=== PATIENT | female | born 1960 | race Caucasian/White ===

== ENCOUNTER 2022-03-28 11:32 | Emergency (ER) | payer SELFPAY ==
--- OUTSIDE RECORDS SUMMARY | 2022-03-28 11:36 | XMS REPORT | Continuity of Care Document ---
:1960 Author Organization [facility] Address [address] [place] [address] Care Team Providers Name Role Phone Arely Mcgarry DO Attending Clinician Doctor Unassigned, [place] Attending Clinician Unavailable Christina Becerra MD Attending Clinician Payers Payer Name Policy Type Policy Number Effective Date Expiration Date Jostin WHITEHEAD O [id number] 2017 00:00:00 Problems Condition Condition Condition Status Onset Resolution Last Treating Co mments Source Name Details Category Date Date Treatment Clinician Date Acute Acute Disease Active Univers cystitis cystitis 09-11 ity of without without 00:00: [place] hematuria hematuria 00 [facility] Elevated Elevated Disease Active Unive rs blood blood 09-11 ity of pressure pressure 00:00: [place] reading reading 00 Medical without without Branch diagnosis diagnosis of of hypertensi hypertensi on on Allergies, Adverse Reactions, Alerts Allergy Allergy Status Severity Reaction(s) Onset Inactive Treating Comm ents Source Name Type Date Date Clinician PENICILL Drug Active Rash Univers INS Class 09-11 ity of 00:00: [place] 00 [facility] Branch Penicill Propensi Active Rash Univer s ins ty to 09-11 ity of adverse 00:00: [place] reaction 00 Medical s Branch Social History Social Habit Start Date Stop Date Quantity Comments Source History of Cigarette Smoker Universi ty of tobacco use [facility] Exposure to Unable to assess Univers ity of SARS-CoV-2 [facility] (event) Branch Cigarettes smoked 2020-11-09 2020-11-09 Univers ity of current (pack per 00:00:00 00:00:00 ) - Reported Branch Cigarette 2020-11-09 2020-11-09 University of pack-years 00:00:00 00:00:00 [facility] Tobacco use and 2020-11-09 2020-11-09 Never used Universit y of exposure 00:00:00 00:00:00 [facility] Alcohol intake 2020-11-09 2020-11-09 Current drinker of Un iversity of 00:00:00 00:00:00 alcohol (finding) [facility] Alcohol Comment 2014-09-11 2014-09-11 occasionally Univers ity of 00:00:00 00:00:00 [facility] Sex Ass[birth year] At [birth year] Universit y of 00:00:00 00:00:00 [facility] Smoking Status Start Date Stop Date Source Current every day smoker 2020-11-09 00:00:00 Uni versity of [facility] Medications Ordered Filled Start Stop Current Ordering Indication Dosage Frequency Signature Comments Components Source Medication Medication Date Date Medication? Clinician (SIG) Name Name NaCl 0.9% No 1000mL at 999 Uni vers (NS) bolus 11-09 mL/hr, ity of infusion 15:45: 16:46 1,000 mL, Aaron as 1,000 mL 00 :00 IV Medical Piggyback, [place] ONCE, 1 dose, 11/09/20 at 1045, STAT iohexol 2019-04 2020- No 120mL 120 mL, Unive rs (OMNIPAQUE 0-04 10-04 Intravenou it y of 350 16:00: 15:51 s, ONCE, 1 [place] BULK-100 00 :00 dose, [facility] mL) 01/07/20 at Branch injection 1100, 120 mL Routine dicyclomine 2019-04 Yes [id number] 10mg Take 1 Univers (BENTYL) 10 0-04 capsule by it y of mg capsule 00:00: mouth 4 [place] (four) Medical times [place] daily. ondansetron 2019- Yes [id number] 4mg Take 1 Univers 4 mg 0-04 tablet by ity of disintegrat 00:00: mouth [place] ing tablet 00 every 4 Medica l (four) Branch hours as needed for Nausea and Vomiting (N/V). Nitrofurant 2019- Yes [id number] 100mg Take 1 Univers oin&Nit. 0-04 capsule by ity o f [place] 00:[place]: mouth 2 [place] (MACROBID) 00 (two) Medical 100 mg times Branch capsule daily. dicyclomine 2019-04 Yes [id number] 10mg Take 1 Univers (BENTYL) 10 0-04 capsule by it y of mg capsule 00:00: mouth 4 [place] (four) Medical times Branch daily. ondansetron 2019-04 Yes [id number] 4mg Take 1 Univers 4 mg 0-04 tablet by ity of disintegrat 00:00: mouth [place] ing tablet 00 every 4 Medica l (four) Branch hours as needed for Nausea and Vomiting (N/V). Nitrofurant 2019-04 Yes [id number] 100mg Take 1 Univers oin&Nit. 0-04 capsule by ity o f [place] 00:[place]: mouth 2 [place] (MACROBID) 00 (two) Medical 100 mg times Branch capsule daily. dicyclomine 2019-04 Yes [id number] 10mg Take 1 Univers (BENTYL) 10 0-04 capsule by it y of mg capsule 00:00: mouth 4 [place] (four) Medical times Branch daily. ondansetron 2019-04 Yes [id number] 4mg Take 1 Univers 4 mg 0-04 tablet by ity of disintegrat 00:00: mouth [place] ing tablet 00 every 4 Medica l (four) Branch hours as needed for Nausea and Vomiting (N/V). Nitrofurant 2019-04 Yes [id number] 100mg Take 1 Univers oin&Nit. 0-04 capsule by ity o f [place] 00:[place]: mouth 2 [place] (MACROBID[place] 00 (two) Medical 100 mg times Branch capsule daily. benzonatate 2017-0 Yes 100mg Take 1 Uni vers 100 mg 3-01 capsule by ity of capsule 00:00: mouth 3 [place] 00 (three) Medical times Branch daily as needed for Cough. DO NOT CHEW! benzonatate 0 Yes 100mg Take 1 Uni vers 100 mg 3-01 capsule by ity of capsule 00:00: mouth 3 [place] 00 (three) Medical times Branch daily as needed for Cough. DO NOT CHEW! benzonatate 2017-0 Yes 100mg Take 1 Uni vers 100 mg 3-01 capsule by ity of capsule 00:00: mouth 3 [place] 00 (three) Medical times Branch daily as needed for Cough. DO NOT CHEW! Vital Signs Vital Name Observation Time Observation Value Comments Source Systolic blood 2020-11-09 16:00:00 162 mm[Hg] Univer sity of pressure [facility] Diastolic blood 2020-11-09 16:00:00 97 mm[Hg] Unive rsity of pressure [facility] Heart rate 2020-11-09 16:00:00 77 /min Universi ty of [facility] Respiratory rate 2020-11-09 16:00:00 19 /min [facility] Oxygen saturation in 2020-11-09 16:00:00 95 /min University of Arterial blood by [facility] Pulse oximetry Branch BMI 2020-11-09 14:37:00 27.37 kg/m2 Universi ty [place] [facility] Body temperature 2020-11-09 14:37:00 36.89 Fatimah [facility] [place] [facility] Body weight 2020-11-09 14:37:00 81.647 kg Universi ty [place] [facility] Systolic blood 2020-01-07 17:00:00 123 mm[Hg] Univer sity of pressure [facility] Diastolic blood 2020-01-07 17:00:00 89 mm[Hg] Unive rsity of [facility] Heart rate 2020-01-07 17:00:00 77 /min Universi ty [place] [facility] Oxygen saturation in 2020-01-07 17:00:00 95 /min University of Arterial blood by [facility] Pulse oximetry Branch Respiratory rate 2020-01-07 16:50:00 18 /min Univ ersity [place] [facility] Body temperature 2020-01-07 14:45:00 35.78 Fatimah [facility] [place] [facility] 2020-01-07 14:45:00 81.647 kg Universi ty [place] [facility] BMI 2020-01-07 14:45:00 27.37 kg/m2 [facility] Procedures Procedure Date / Time Performing Clinician Source Performed XR CHEST 1 VW 2020-11-09 15:22:45 Arely Mcgarry [facility] TROPONIN I 2020-11-09 14:45:00 Arely Mcgarry [facility] HEPATIC FUNCTION PANEL 2020-11-09 14:45:00 Arely Mcgarry [facility] ([id number]) (ALB,T.PRO,BILI Medical Branch T,BU/BC,ALT,AST,ALK PHOS) BASIC METABOLIC PANEL 2020-11-09 14:45:00 Arely Mcgarry [facility] (NA, K, CL, CO2, Medical Branch GLUCOSE, BUN, CREATININE, CA) CBC WITH DIFF 2020-11-09 14:45:00 Arely Mcgarry [facility] Medical Branch COVID-19 (ID NOW RAPID 2020-11-09 14:45:00 [facility] Medical Branch NOTICE OF PRIVACY 2020-11-09 14:27:55 Doctor Unassigned, No [facility] PRACTICES Name Medical Branch CONSENT/REFUSAL FOR 2020-11-09 14:27:40 [facility] Name Medical [place] ABDOMEN PELVIS W WO 2020-01-07 15:56:17 Christina Becerra [facility] CONTRAST [facility] Branch LIPASE 2020-01-07 15:13:00 Leandro Christina [facility] HEPATIC FUNCTION PANEL 2020-01-07 15:13:00 Christina Becerra [facility] ([id number]) (ALB,T.PRO,BILI Medical Branch T,BU/BC,ALT,AST,ALK PHOS) BASIC METABOLIC PANEL 2020-01-07 15:13:00 Christina Becerra [facility] (NA, K, CL, CO2, Medical Branch GLUCOSE, BUN, CREATININE, CA) CBC WITH DIFF 2020-01-07 15:13:00 Christina Becerra [facility] PROTHROMBIN TIME / INR 2020-01-07 15:13:00 Christina Becerra [facility] ACTIVATED PARTIAL 2020-01-07 15:13:00 Christina Becerra [facility] THRMPLAS MIGUEL [facility] Branch URINALYSIS 2020-01-07 15:13:00 Leandro Christina [facility] NOTICE OF PRIVACY 2020-01-07 14:34:37 Doctor Unassigned, No [facility] PRACTICES Name Medical Branch Encounters Start End Encounter Admission Attending Care Care Encounter Source Date/Time Date/Time Type Type Clinicians Facility Department ID 2020-11-09 2020-11-09 Emergency VAL Mcgarry [id number] Univers 09:31:00 11:46:00 Arely Ellis [id number] ity of [place] [id number] [facility] [id number] [facility] 084 Branch 2020-11-09 2020-11-09 Emergency X [facility] ERT [id number] Univers 09:28:00 09:28:00 ity of [facility] 2020-11-09 2020-11-09 Orders Doctor GUPTA [id number] Univers 00:00:00 00:00:00 Only Unassigned, SARA [id number] ity of [place] [facility] [id number] Aaron [id number] [facility] 009 Branch 2020-01-07 2020-01-07 Emergency Becerra, [facility] [id number] Univers 09:46:00 12:32:00 Christina Ellis [id number] i ty of [place] [id number] [facility] [id number] [facility] 084 Branch 2020-01-07 2020-01-07 Emergency X [facility] ERT [id number] Univers 09:36:00 09:36:00 ity [place] [facility] Results Test Description Test Time Test Comments Results Result Sour e Comments XR CHEST 1 VW 1. No acute Universit y of 7 cardiopulmonary [place] [facility] 16:03:51 disease. Branch Indication: cough, sob ? Comparison: None RL: [id number] ORDERING PHYSICIAN: WENCESLAO ALVA TECHNIQUE: Single view of the chest. FINDINGS: The lungs are clear. Cardiomediastinal silhouette is withinnormal limits. ?No pneumothorax. Status post intramedullary ian andproximal interlocking screws in the left humerus. [facility], Radiant Results Inft User - 11/09/2020 11:05 AM CDT Indication: cough, sob Comparison: NoneRL: [id number] PHYSICIAN: ARELY MCGARRY TECHNIQUE: Single view of the chest.FINDINGS: The lungs are clear. Cardiomediastinal silhouette is withinnormal limits. No pneumothorax. Status post intramedullary ian andproximal interlocking screws in the left humerus.IMPRESSION1. No acute cardiopulmonary disease.Electronicall y signed by Adin Avery at 11/09/2020 11:03 AM TROPONIN I 2020-11-09 15:29:49 Test Item Value Reference Range Interpretation Comme nts TROPONIN I (test code = 0.001 ng/mL See_Comment [Au tomated message] The 4402663928) system which ge nerated this result tra nsmitted reference range : <=0.034. The reference r robby was not used to int erpret this result as normal/abnormal . RAFAEL (test code = RAFAEL) Reference (Normal) Range (defined by the 99th percentile reference limit): <= 0.034 ng/mL Note: Cardiac troponin begins to rise 3-4 hours after the onset of ischemia. Repeat in 4-6 hours if the sample was drawn within 3-4 hours of the onset of the symptom and found normal. Diagnosis of myocardial injury is made with acute changes in cTn concentrations with at least one serial sample above the 99th percentile upper reference limit (URL), taken together with the patient's clinical presentation. Biotin has been reported to cause a negative bias, interpret results relative to patient's use of biotin. Lab Interpretation Normal (test code = 68895-5) [facility]2020-11-09 15:19:50 Test Item Value Reference Range Interpretation Comments SARS-CoV-2 Rapid ID NOW Not Detected Not Detected (test code = 75196-5) RAFAEL (test code = RAFAEL) ID NOW COVID-19 Assay is an isothermal nucleic acid amplification test intended for the qualitative detection of nucleic acid from SARS-CoV-2 viral RNA in nasopharyngeal (PATHOLOGICAL TECHNICIAN) specimens. It is used under Emergency Use Authorization (EUA) by FDA. The limit of detection (LOD) of the assay is 125 Genome Equivalents/mL. A positive result is indicative of the presence of SARS-CoV-2 RNA. ?Clinical correlation with patient history and other diagnostic information is necessary to determine patient infection status. A negative (Not Detected) result does not preclude SARS-CoV-2 infection. In patients with clinical symptoms and other tests that are consistent with SARS-CoV-2 infection, negative results should be treated as presumptive negative and a new specimen should be tested with alternative PCR molecular test. Invalid: Please collect a new specimen for repeat patient testing if clinically indicated. Lab Interpretation Normal (test code = 49936-0) [facility] METABOLIC PANEL (NA, K, CL, CO2, GLUCOSE, BUN, CREATININE, CA)2020-11-09 15:18:30 Test Item Value Reference Range Interpretation Comments NA (test code = 139 mmol/L 135-145 8170842509) K (test code = 3.7 mmol/L 3.5-5.0 7185610470) CL (test code = 100 mmol/L 98-108 9449774514) CO2 TOTAL (test code 27 mmol/L 23-31 = 9835294458) AGAP (test code = 2-16 4261605767) BUN (test code = 20 mg/dL 7-23 2719850317) GLUCOSE (test code = 106 mg/dL 70-110 2705876122) CREATININE (test code 0.64 mg/dL 0.50-1.04 = 8321066317) CALCIUM (test code = 9.8 mg/dL 8.6-10.6 8198599690) eGFR (test code = mL/min/1.73m2 6378004678) RAFAEL (test code = RAFAEL) Association of Glomerular Filtration Rate (GFR) and Staging of Kidney Disease* + + +- +| GFR (mL/min/1.73 m2) ?| With Kidney Damage ?| ?Without Kidney Damage+ ------+ ----+ ------+| ?>90 ?| ?Stage one ?| ? Normal ?+ -+ + -+| ?60-89 ?| ?Stage two ?| ? Decreased GFR ? + + +- +| ?30-59 ?| ?Stage three ?| ? Stage three ? + + +- +| ?15-29 ?| ?Stage four ? | ? Stage four ?+ -+ + -+| ?<15 (or dialysis) ? ?| ?Stage five ? | ? Stage five ?+ -+ + -+ *Each stage assumes the associated GFR level has been in effect for at least three months. ?Stages 1 to 5, with or without kidney disease, indicate chronic kidney disease. Notes: Determination of stages one and two (with eGFR >59mL/min/1.73 m2) requires estimation of kidney damage for at least three months as defined by structural or functional abnormalities of the kidney, manifested by either:Pathological abnormalities or Markers of kidney damage (including abnormalities in the composition of the blood or urine or abnormalities in imaging tests). [facility] (ALB,T.PRO,BILI T,BU/BC,ALT,AST,ALK PHOS)2020-11-09 15:18:10 Test Item Value Reference Range Interpretation Comments TOTAL BILI (test code = 3240573607) 0.7 mg/dL 0.1-1.1 BILI UNCON (test code = 7886126776) 0.4 mg/dL 0.1-1.1 BILI CONJ (test code = 6004509496) 0.0 mg/dL 0.0-0.3 T PROTEIN (test code = 2272039216) 8.4 g/dL 6.3-8.2 H ALBUMIN (test code = 7879411935) 4.8 g/dL 3.5-5.0 ALK PHOS (test code = 1536365300) 85 U/L 34-122 ALTv (test code = 1742-6) 31 U/L 5-35 AST(SGOT) (test code = 0559580262) 32 U/L 13-40 Lab Interpretation (test code = Abnormal 18862-5) [facility] [id number] 15:05:09 Test Item Value Reference Range Interpretation Comments WBC (test code = See_Comment [Automated 1998-2) message] The sy stem which generated this result transmitted reference range : 4.30 - 11.10 10*3/?L. The reference range was not used to interpret this result as normal/abnormal . RBC (test code = See_Comment [Automated 048-3) message] The sy stem which generated this result transmitted reference range : 3.93 - 5.25 10*6/?L. The reference range was not used to interpret this result as normal/abnormal . HGB (test code = 15.2 g/dL 11.6-15.0 H 718-7) HCT (test code = 46.2 % 35.7-45.2 H 4544-3) MCV (test code = 92.4 fL 80.6-95.5 787-2) MCH (test code = 30.4 pg 25.9-32.8 785-6) MCHC (test code = 32.9 g/dL 31.6-35.1 786-4) RDW-SD (test code = 42.5 fL 39.0-49.9 72278-3) RDW-CV (test code = 12.4 % 12.0-15.5 788-0) PLT (test code = See_Comment [Automated 777-3) message] The sy stem which generated this result transmitted reference range : 166 - 358 10*3/ ?L. The reference r robby was not used to interpret this result as normal/abnormal . MPV (test code = 11.0 fL 9.5-12.9 07152-8) NRBC/100 WBC (test See_Comment [Automat ed code = 7017853615) message] The system which generated this result transmitted reference range : 0.0 - 10.0 /100 WBCs. The refer ence range was not u sed to interpret th is result as normal/abnormal . NRBC x10^3 (test code <0.01 See_Comment [Auto mated = 8119471468) message] The s ystem which generated this result transmitted reference range : 10*3/?L. The reference range was not used to interpret this result as normal/abnormal . GRAN MAT (NEUT) % 59.2 % (test code = 770-8) IMM GRAN % (test code 0.40 % = 4315651506) LYMPH % (test code = 26.6 % 736-9) MONO % (test code = 9.9 % 5905-5) EOS % (test code = 3.1 % 713-8) BASO % (test code = 0.8 % 706-2) GRAN MAT x10^3(ANC) 4.37 10*3/uL 1.88-7.09 (test code = 4071839534) IMM GRAN x10^3 (test 0.03 10*3/uL 0.00-0.06 code = 3104343163) LYMPH x10^3 (test code 1.96 10*3/uL 1.32-3.29 = 731-0) MONO x10^3 (test code 0.73 10*3/uL 0.33-0.92 = 742-7) EOS x10^3 (test code = 0.23 10*3/uL 0.03-0.39 711-2) BASO x10^3 (test code 0.06 10*3/uL 0.01-0.07 = 704-7) Lab Interpretation Abnormal (test code = 26390-8) [facility] WO [id number] 16:52:52 1. Colonic diverticulosis without evidence of acute diverticulitis 2. Normal appendix. 3. Hepatic cysts 4. 2.0 x 1.4 cm enhancing focus within the lateral section, left hemiliver.This appears to communicate with both the left hepatic vein and the leftportal vein. This could represent a vascular malfor mation or hemangioma. 5. 1 cm hypodensity in the right renal mid zone most compatible with a cyst 6.Subserosal fibroid along the anterior uterine fundus measuringapproximately 1 cm. 7. Asymmetric osteosclerosis of the left pubic bone at the level of thesymphysis. This may be degenerative in nature. Metastatic disease would evan possibility if there is history of underlying malignancy. If there is noprior history of malignancy, degenerative change and/or underlying fibrouslesion/fibrous dysplasia arefavored. RL: ?2821 AFC: ?[address] WITHOUT AND WITH INTRAVENOUS CONTRAST. CLINICAL INDICATIONS: ? Abd infection (incl per itonitis) TECHNIQUE: ?Axial computed tomographic images of the abdomen and pelviswere performed before and after administration of nonionic intravenouscontrast. The CT Imaging data was obtained utilizing radiation doseparameters in accordance with ALARA (As Low As Reasonably Achievable) Ordering Physician: ?CHRISTINA BECERRA ? FINDINGS: ? No prior exams available for comparison. Heart size is normal. Nopericardial effusion. Lung bases appear clear. There is a 2.0 x 1.4 cm enhancing lesion in the lateral section lefthemiliver on image 19. This may represent a hemangioma, focal nodularhyperplasia, or possibly a venous vascular malformation. This lesionappears to communicate with the left hepatic vein as well as the leftportal vein. There is a 1 cm cyst along the lateral section of the left hemiliver. An additional subcortical cyst measuring 7 mm noted more inferiorly withinthe lateral section of the left hemiliver. The liver is borderline tomildly enlarged. The kidneys and adrenal glands appear normal. Spleen is normal in size. Thestomach contains a small amount of gas and fluid. The duodenum and pancreasappear normal. No biliary dilatation or pancreas ductal dilatation. There is a small cyst along the lateral right renal mid zone measuring 1 cmon image 50. There is mild calcified plaque in the wall of the abdominal aorta extendinginto the left common iliac artery. No inguinal lymphadenopathy. Urinary bladder is mildly distended. A small subserosal fibroid suggestedalong the anterior uterine fundus measuring approximately 1 cm. The ovariesappear normal. Small amount stool within the rectum. There is colonic diverticulosiswithout evidence of acute diverticulitis. No evidence of mechanical bowel obstruction. Normal appendix. No free fluid or free intraperitoneal gas. No renal stone or hydronephrosis identified on the noncontrastexaminations. Severe degenerative disc disease at L4-5 with vacuum disc phenomenon. Nocompression fracture. 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 There are chronic Schmorl's nodes deformities alongthe endplates in the lower thoracic spine and lumbar spine. Regions of osteosclerosis noted within the pubic bones at the level of thesymph ysis, left side greater than right. This may be degenerative innature. A metastatic lesion is a possibility if there is history of priormalignant process. Nonemergent bone scan may be helpful. Coarsenedtrabeculae also suggested along the posterior, superior right iliac bonewhich may be degenerative orrepresent an underlying fibrous lesion. [facility], Radiant Results Inft User - 01/07/2020 11:54 AM CDTABDOMEN AND PELVIS CT WITHOUT AND WITH INTRAVENOUS CONTRAST.CLINICAL INDICATIONS: Abd infection (incl peritonitis) TECHNIQUE: Axial computed tomographic images of the abdomen and pelviswere performed before and after administration of nonionic intravenouscontrast. The CT Imaging data was obtained utilizing radiation doseparameters in accordance with ALARA (As Low As Reasonably Achievable)Ordering Physician: CHRISTINA BECERRA FINDINGS: No prior exams available for comparison. Heart size is normal. Nopericardial effusion.Lung bases appear clear.There is a 2.0 x 1.4 cm enhancing lesion in the lateral sectionlefthemiliver on image 19. This may represent a hemangioma, focal nodularhyperplasia, or possibly a venous vascular malformation. This lesionappears to communicate with the left hepatic vein as well asthe leftportal vein.There is a 1 cm cyst along the lateral section of the left hemiliver.An additional subcortical cyst measuring 7 mm noted more inferiorly withinthe lateral section of the left hemiliver. The liver is borderline tomildly enlarged.The kidneys and adrenal glands appear normal. Spleen is normal in size. Thestomach contains a small amount of gas and fluid. The duodenum and pancreasappear normal. No biliary dilatation or pancreas ductal dilatation.There is a small cyst along the lateralright renal mid zone measuring 1 cmon image 50.There is mild calcified plaque in the wall of the abdominal aorta extendinginto the left common iliac artery.No inguinal lymphadenopathy.Urinary bladder is mildly distended. A small subserosal fibroid suggestedalong the anterior uterine fundus measuring approximately 1 cm. The ovariesappear normal.Small amount stool within the rectum. There is colonic div erticulosiswithout evidence of acute diverticulitis.No evidence of mechanical bowel obstruction. Normal appendix.No free fluid or free intraperitoneal gas.No renal stone or hydronephrosis identified onthe noncontrastexaminations.Severe degenerative disc disease at L4-5 with vacuum disc phenomenon. Nocompression fracture. 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 There are chronic Schmorl's nodes deformities alongthe endplates in the lower thoracic spine and lumbar spine.Regions of osteosclerosis noted within the pubic bones at the level of thesymphysis, left side greater than right. This may be degenerative innature. A metastatic lesion is a possibility if there is history of priormalignant process. Nonemergent bone scan may be helpful. Coarsenedtrabeculae also suggested along the posterior, superior right iliac bonewhich may be degenerative or represent an underlying fibrous lesion.IMPRESSION1. Colonic diverticulosis without evidence of acute diverticulitis2. Normal appendix.3. Hepatic cysts4. 2.0 x 1.4 cm enhancing focus within the lateral section, left hemiliver.This appears to communicate with both the left hepatic vein and the leftportal vein. This could represent a vascular malformation or hemangioma.5. 1 cm hypodensity in the right renal mid zone most compatible with a cyst6. Subserosal fibroid along the anterior uterine fundus measuringapproximately 1 cm.7. Asymmetric osteosclerosis of the left pubic bone at the level of thesymphysis. This may be degenerative in nature. Metastatic disease would evan possibility if there is history of underlying malignancy. If there is noprior history of malignancy, degenerative change and/or underlying fibrouslesion/fibrous dysplasia are favored.RL: [id number]: [id number] signed by Tarik Malloy MD at 01/07/202011:52 AMUnMethod[facility] AtascosaHepatic Function Panel (ALB, T.PRO, BILI T, BU/BC, ALT, AST, ALK PHOS) 2020-01-07 15:35:00 Test Item Value Reference Range Interpretation Comments TOTAL BILI (test code = 4911708050) 0.3 mg/dL 0.1-1.1 BILI UNCON (test code = 2399059664) 0.4 mg/dL 0.1-1.1 BILI CONJ (test code = 0220306367) 0.0 mg/dL 0-0.3 T PROTEIN (test code = 1693565052) 7.3 g/dL 6.3-8.2 ALBUMIN (test code = 5937824757) 4.0 g/dL 3.5-5 ALK PHOS (test code = 8830513258) 63 U/L 34-122 ALTv (test code = 1742-6) 23 U/L 5-35 AST(SGOT) (test code = 2988465146) 23 U/L 13-40 Lab Interpretation (test code = Normal 47686-8) [facility]00 Test Item Value Reference Range Interpretation Comments APTT Patient (test See_Comment [Automat ed code = 3173-2) message] The system which generated this result transmitted reference range : 23 - 38 Seconds . The reference range was not used to interpr et this result as normal/abnormal . RAFAEL (test code = RAFAEL) The [facility] patient population mean normal value for aPTT is 30 seconds. Lab Interpretation Normal (test code = 26907-7) [facility] (NA, K, CL, CO2, GLUCOSE, BUN, CREATININE, CA)2020-01-07 15:34:00 Test Item Value Reference Range Interpretation Comments NA (test code = 138 mmol/L 135-145 3109600647) K (test code = 4.1 mmol/L 3.5-5 1191535011) CL (test code = 100 mmol/L 98-108 6837595253) CO2 TOTAL (test code = 30 mmol/L 23-31 4090353135) AGAP (test code = 2-16 9132217345) BUN (test code = 16 mg/dL 7-23 4194427672) GLUCOSE (test code = 107 mg/dL 70-110 3069150807) CREATININE (test code 0.60 mg/dL 0.5-1.04 = 7469423265) CALCIUM (test code = 9.4 mg/dL 8.6-10.6 3734756438) eGFR Calculation mL/min/1.73m2 (Non-) (test code = 6727978509) eGFR Calculation mL/min/1.73m2 () (test code = 0606586858) RAFAEL (test code = RAFAEL) Association of Glomerular Filtration Rate (GFR) and Staging of Kidney Disease* + -+ + ---+| GFR (mL/min/1.73 m2) ?| With Kidney Damage ?| ?Without Kidney Damage+ -------+ ------+ ---------+| ?>90 ?| ?Stage one ?| ? Normal ?+ --+ -+ ----+| ?60-89 ?| ?Stage two ?| ? Decreased GFR ? + -+ + ---+| ?30-59 ?| ?Stage three ?| ? Stage three ? + -+ + ---+| ?15-29 ?| ?Stage four ? | ? Stage four ?+ --+ -+ ----+| ?<15 (or dialysis) ? ?| ?Stage five ? | ? Stage five ?+ --+ -+ ----+ *Each stage assumes the associated GFR level has been in effect for at least three months. ?Stages 1 to 5, with or without kidney disease, indicate chronic kidney disease. Notes: Determination of stages one and two (with eGFR >59mL/min/1.73 m2) requires estimation of kidney damage for at least three months as defined by structural or functional abnormalities of the kidney, manifested by either:Pathological abnormalities or Markers of kidney damage (including abnormalities in the composition of the blood or urine or abnormalities in imaging tests). [facility] [id number] 15:34:00 Test Item Value Reference Range Interpretation Comments LIPASE (test code = 4615076330) 64 U/L 0-220 Lab Interpretation (test code = Normal 50245-1) [facility] (PT) / [id number] 15:32:00 Test Item Value Reference Range Interpretation Comments PROTIME PATIENT (test See_Comment [Auto mated message] code = 5964-2) The system [employer] generated this result transmitted ref erence range: 12.0 - 1 4.7 Seconds. The re ference range was not u sed to interpret this result as normal/abnor mal. INR (test code = 6301-6) Nor mal INR <1.1; Warfarin Therap eutic range 2.0 to 3. 0 or 2.5 to 3.5, dep ending upon the indica tions. Lab Interpretation (test Normal code = 75863-2) [facility]inalysis2020-10-04 15:30:00 Test Item Value Reference Range Interpretation Comments APPEARANCE (test code = Clear Clear 6358899666) COLOR (test code = Yellow Yellow 3624983723) PH (test code = 4.8-8.0 8732102665) SP GRAVITY (test code = 1.003-1.030 7024782176) GLU U QUAL (test code = Normal Normal 3932162751) BLOOD (test code = 1+ Negative A 1266479402) KETONES (test code = Negative Negative 3955832163) PROTEIN (test code = Negative Negative 2887-8) UROBILIN (test code = Normal Normal 5956674513) BILIRUBIN (test code = Negative Negative 6701634176) NITRITE (test code = Negative Negative 8133653056) LEUK NILAM (test code = 250/uL Negative A 4405061332) RBC/HPF (test code = See_Comment H [Autom ated message] 7555031801) The system [employer] generated this result transmitted ref erence range: 0 - 3 HP F. The reference range was not used to int erpret this result as normal/abnormal . WBC/HPF (test code = See_Comment [Autom ated message] 3744227537) The system [employer] generated this result transmitted ref erence range: 0 - 5 HP F. The reference range was not used to int erpret this result as normal/abnormal . BACTERIA (test code = Few Negative A 6255363968) MUCOUS (test code = Slight Negative LPF A 6072054911) SQ EPITH (test code = HPF 4398265045) Lab Interpretation (test Abnormal code = 77544-1) [facility] with [id number] 15:22:00 Test Item Value Reference Range Interpretation Comments WBC (test code = See_Comment [Automated message] 6690-2) The system [employer] generated this result transmitted ref erence range: 4.30 - 1 1.10 10*3/?L. The re ference range was not u sed to interpret this result as normal/abnor mal. RBC (test code = See_Comment [Automated message] 029-8) The system [employer] generated this result transmitted ref erence range: 3.93 - 5 .25 10*6/?L. The re ference range was not u sed to interpret this result as normal/abnor mal. HGB (test code = 14.5 g/dL 11.6-15 718-7) HCT (test code = 44.1 % 35.7-45.2 4544-3) MCV (test code = 90.4 fL 80.6-95.5 787-2) MCH (test code = 29.7 pg 25.9-32.8 785-6) MCHC (test code = 32.9 g/dL 31.6-35.1 786-4) RDW-SD (test code 41.9 fL 39-49.9 = 08026-7) RDW-CV (test code 12.7 % 12-15.5 = 788-0) PLT (test code = See_Comment [Automated message] 507-3) The system [employer] generated this result transmitted ref erence range: 166 - 35 8 10*3/?L. The re ference range was not u sed to interpret this result as normal/abnor mal. MPV (test code = 11.4 fL 9.5-12.9 01072-9) NRBC/100 WBC (test See_Comment [Automat ed message] code = 1802456870) The syste m which generated this result transmitted ref erence range: 0.0 - 10 .0 /100 WBCs. The refer ence range was not u sed to interpret this result as normal/abnor mal. NRBC x10^3 (test <0.01 See_Comment [Automated message] code = 2138255334) The syste m which generated this result transmitted ref erence range: 10*3/?L. The reference range was not used to interpr et this result as normal/abnormal . GRAN MAT (NEUT) % 66.5 % (test code = 770-8) IMM GRAN % (test 0.40 % code = 1526773039) LYMPH % (test code 22.3 % = 736-9) MONO % (test code 7.6 % = 5905-5) EOS % (test code = 2.4 % 713-8) BASO % (test code 0.8 % = 706-2) GRAN MAT 5.01 10*3/uL 1.88-7.09 x10^3(ANC) (test code = 2773762091) IMM GRAN x10^3 0.03 10*3/uL 0-0.06 (test code = 8217068770) LYMPH x10^3 (test 1.68 10*3/uL 1.32-3.29 code = 731-0) MONO x10^3 (test 0.57 10*3/uL 0.33-0.92 code = 742-7) EOS x10^3 (test 0.18 10*3/uL 0.03-0.39 code = 711-2) BASO x10^3 (test 0.06 10*3/uL 0.01-0.07 code = 704-7) [facility]"
[2022-03-28] MEDS ORDERED: MORPHINE 4 MG/ML SYR ONE (12:16)
[2022-03-28] MEDS ORDERED: ONDANSETRON 4 MG/2 ML VIAL ONE (12:16)
[2022-03-28] MEDS ORDERED: NA CHLORIDE 0.9% 1,000 ML ONE (12:16)
[2022-03-28 12:25] LABS: Absolute Lymphocytes (CBC) 1.7 K/uL (0.7-4.9); Hematocrit 47.1 % (36.0-45.0); MCV 89.4 fL (80-100); MPV 9.8 fL (7.6-11.3); RBC Red Blood Cell Count 5.27 M/uL (3.86-4.86)
[2022-03-28 12:44] LABS: Albumin 3.6 g/dL (3.4-5.0); Bilirubin Total 0.4 mg/dL (0.2-1.0); Potassium 4.1 mmol/L (3.5-5.1); Protein, Total 7.3 g/dL (6.4-8.2)
--- NOTE | 2022-03-28 13:15 | RAD REPORT ---
EXAM DESCRIPTION: CTAbdomen Pelvis W Contrast - 03/28/2022 1:04 pm CLINICAL HISTORY: Abdominal pain. right lower abdominal pain COMPARISON: No comparisons TECHNIQUE: Biphasic CT imaging of the abdomen and pelvis was performed with 100 ml non-ionic IV cont rast. All CT scans are performed using dose optimization technique as appropriate and may include automated exposure control or mA/KV adjustment according to patient size. FINDINGS: The lung bases are clear. The liver demonstrates multiple small cysts. Spleen, pancreas, adrenal glands and kidneys are within normal limits. No bowel obstruction, free air, free fluid or abscess. Sigmoid diverticulosis coli is present without diverticulitis. The appendix is normal. No evidence of significant lymphadenopathy. Mild lumbosacral degenerative changes. Small bilateral fat containing inguinal hernias. IMPRESSION: No acute intra-abdominal or pelvic finding. Prominent sigmoid diverticulosis coli without diverticulitis.
[2022-03-28 14:24] LABS: Urine Blood Trace-intact (Negative); Urine Glucose Negative (Negative); Urine Protein Negative (Negative); Urine Specific Gravity 1.015 (1.005-1.030)
--- NOTE | 2022-03-28 14:31 | ER ---
Nurse's Notes [facility] Name: Lorenza Khan Age: 61 yrs Sex: Female : 1960 Arrival Date: 03/28/2022 Time: 11:38 Bed 8 Private MD: Diagnosis: Abdominal pain, unspecified Presentation: 03/28 11:48 Chief complaint: Patient states: Sharp, stabbing RLQ pain x 2 days, also reports upper ph abdominal pain after eating, nausea and some diarrhea. Coronavirus screen: Vaccine status: Patient reports receiving the 2nd dose of the covid vaccine. Ebola Screen: No symptoms or risks identified at this time. Initial Sepsis Screen: Does the patient meet any 2 criteria? No. Patient's initial sepsis screen is negative. Does the patient have a suspected source of infection? No. Patient's initial sepsis screen is negative. Risk Assessment: Do you want to hurt yourself or someone else? Patient reports no desire to harm self or others. Onset of symptoms was March 28, 2022. 11:48 Method Of Arrival: Ambulatory ph 11:48 Acuity: DIANA 3 ph Triage Assessment: 11:50 General: Appears in no apparent distress. uncomfortable, Behavior is calm, cooperative, ph appropriate for age. Pain: Complains of pain in right lower quadrant. Neuro: Level of Consciousness is awake, alert, obeys commands, Oriented to person, place, time, situation. GI: Reports lower abdominal pain, diarrhea, nausea. Historical: - Allergies: 11:50 PENICILLINS; ph - PSHx: 11:50 tubal ligation; L arm sx; ph - Immunization history:: Adult Immunizations unknown. - Social history:: Smoking status: Patient reports the use of cigarette tobacco products, denies chronic smoking, but will smoke occasionally. Screenin:00 [facility] ED Fall Risk Assessment (Adult) History of falling in the last 3 months, kb3 including since admission No falls in past 3 months (0 pts) Confusion or Disorientation No (0 pts) Intoxicated or Sedated No (0 pts) Impaired Gait No (0 pts) Mobility Assist Device Used No (0 pt) Altered Elimination No (0 pt) Score/Fall Risk Level 0 - 2 = Low Risk Oriented to surroundings, Maintained a safe environment, Educated pt \T\ family on fall prevention, incl call for assistance when getting out of bed, Assessed \T\ reinforced patient's understanding of fall precautions, Provided non-skid footwear, Hourly rounding (assess needs \T\ fall precautionary measures) done, Used ambulatory aids as needed (educated on \T\ assisted with), Used gait belt as appropriate. 15:00 Clinical [place] Withdrawal Assessment for Alcohol, revised (CIWA-Ar):. Abuse screen: kb3 Denies threats or abuse. Denies injuries from another. Nutritional screening: No deficits noted. Tuberculosis screening: No symptoms or risk factors identified. Assessment: 12:00 General: Appears in no apparent distress. uncomfortable, Behavior is calm, cooperative. kb3 12:00 GI: Abdomen is round Bowel sounds present X 4 quads. Abd is soft X 4 quads Abdomen is kb3 tender to palpation in right upper quadrant and right lower quadrant Reports lower abdominal pain, upper abdominal pain, diarrhea, nausea, vomiting. : Denies burning with urination, inability to void, urinary frequency, urgency. 14:16 General: Pt ambulatory to restroom without complaints. kb3 Vital Signs: 11:48 BP 146 / 75; Pulse 99; Resp 18; Temp 97.2; Pulse Ox 99% on R/A; Weight 83.01 kg; Height ph 5 ft. 7 in. (170.18 cm); Pain 8/10; 15:00 BP 115 / 75; Pulse 80; Resp 20; Pulse Ox 96% ; kb3 11:48 Body Mass Index 28.66 (83.01 kg, 170.18 cm) ph ED Course: 11:38 Patient arrived in ED. as 11:47 Pavel Tiwari PA is PHCP. [facility] 11:47 Romana Ruth MD is Attending Physician. [facility] 11:50 Triage completed. ph 11:51 Arm band placed on Patient placed in an exam room. ph 12:00 Patient has correct armband on for positive identification. Placed in gown. Bed in low kb3 position. Call light in reach. Side rails up X2. Warm blanket given. 12:00 No provider procedures requiring assistance completed. kb3 12:07 CBC with Diff Sent. rs5 12:07 CMP Sent. rs5 12:07 Lipase Sent. rs5 12:08 Inserted saline lock: 20 gauge in left forearm, using aseptic technique. Blood rs5 collected. 12:22 Bolanos, Elza, RN is Primary Nurse. db 13:[address] via wheelchair. kb3 13:05 CT Abd/Pelvis - IV Contrast Only In Process Unspecified. EDMS 13:15 Patient moved back from [address]. kb3 14:28 Bishnu Birmingham MD is Referral Physician. jmm 15:00 IV discontinued, intact, bleeding controlled, No redness/swelling at site. Pressure kb3 dressing applied. Administered Medications: 12:25 Drug: NS 0.9% 1000 ml Route: IV; Rate: 1 bolus; Site: right antecubital; db 13:25 Follow up: Response: No adverse reaction; IV Status: Completed infusion; IV Intake: kb3 1000ml 12:25 Drug: morphine 4 mg Route: IVP; Infused Over: 4 mins; Site: right antecubital; db 13:30 Follow up: Response: No adverse reaction; Pain is decreased kb3 12:38 Drug: Zofran (Ondansetron) 4 mg Route: IVP; Site: right antecubital; db 13:30 Follow up: Response: No adverse reaction; Nausea is decreased kb3 Medication: 12:00 VIS not applicable for this client. kb3 Intake: 13:25 IV: 1000ml; Total: 1000ml. kb3 Outcome: 14:30 Discharge ordered by MD. [facility] 15:12 Discharged to home ambulatory. kb3 15:12 Condition: stable 15:12 Discharge instructions given to patient, Instructed on discharge instructions, follow up and referral plans. medication usage, Demonstrated understanding of instructions, follow-up care, medications, Prescriptions given X 2. 15:13 Patient left the ED. kb3 Signatures: Dispatcher [employer] EDMS Pavel Tiwari PA PA jmm Martinez, Amelia as Hall, Patricia RN RN Marie Luis RN RN kb3 Elza Bolanos, TEDDY RN db Luis Arce rs5 Corrections: (The following items were deleted from the chart) 14:26 14:25 GI: Abdomen is round Bowel sounds present X 4 quads. Abd is soft X 4 quads kb3 Abdomen is tender to palpation in right upper quadrant and right lower quadrant Reports lower abdominal pain, upper abdominal pain, diarrhea, nausea, vomiting, kb3 14:26 14:25 : Denies burning with urination, inability to void, urinary frequency, urgency, kb3 kb3
--- NOTE | 2022-03-28 14:31 | EDPHYS ---
Physician Documentation [facility] Name: Lorenza Khan Age: 61 yrs Sex: Female : 1960 Arrival Date: 03/28/2022 Time: 11:38 Bed 8 Private MD: ED Physician Romana Ruth HPI: 03/28 11:51 This 61 yrs old Female presents to ER via Ambulatory with complaints of Abdominal Pain. jmm 11:51 The patient presents with abdominal pain. Onset: The symptoms/episode began/occurred jmm gradually. The symptoms do not radiate. Associated signs and symptoms: Pertinent positives: nausea. This is a 61 year old female that presents to the ED with complaints of right lower abdominal pain, fever beginning approx 3 days ago. patient's pain is worse on ambulation. denies vomiting but states having nausea. Denies diarrhea. . Historical: - Allergies: 11:50 PENICILLINS; ph - PSHx: 11:50 tubal ligation; L arm sx; ph - Immunization history:: Adult Immunizations unknown. - Social history:: Smoking status: Patient reports the use of cigarette tobacco products, denies chronic smoking, but will smoke occasionally. ROS: 11:51 Constitutional: Positive for body aches, fever. jmm 11:51 Abdomen/GI: Positive for abdominal pain. 11:51 All other systems are negative. Exam: 11:51 Constitutional: This is a well developed, well nourished patient who is awake, alert, jmm and in no acute distress. Head/Face: atraumatic. Eyes: EOMI, no conjunctival erythema appreciated ENT: Moist Mucus Membranes Neck: Trachea midline, Supple Chest/axilla: Normal chest wall appearance and motion. Cardiovascular: Regular rate and rhythm. No edema appreciated Respiratory: Normal respirations, no respiratory distress appreciated 11:51 Back: Normal ROM Skin: General appearance color normal MS/ Extremity: Moves all extremities, no obvious deformities appreciated, no edema noted to the lower extremities Neuro: Awake and alert Psych: Behavior is normal, Mood is normal, Patient is cooperative and pleasant 11:51 Abdomen/GI: Inspection: abdomen appears normal, Bowel sounds: normal, Palpation: soft, moderate abdominal tenderness, in the suprapubic area and right lower quadrant. Vital Signs: 11:48 BP 146 / 75; Pulse 99; Resp 18; Temp 97.2; Pulse Ox 99% on R/A; Weight 83.01 kg; Height ph 5 ft. 7 in. (170.18 cm); Pain 8/10; 15:00 BP 115 / 75; Pulse 80; Resp 20; Pulse Ox 96% ; kb3 11:48 Body Mass Index 28.66 (83.01 kg, 170.18 cm) ph MDM: 11:51 Patient medically screened. [facility] 14:13 Data reviewed: vital signs, nurses notes. [facility] 14:27 Data reviewed: vital signs. Counseling: I had a detailed discussion with the patient jmm and/or guardian regarding: the historical points, exam findings, and any diagnostic results supporting the discharge/admit diagnosis, lab results, radiology results, the need for outpatient follow up, to return to the emergency department if symptoms worsen or persist or if there are any questions or concerns that arise at home. 14:42 ED course: CT imaging studies discussed with the patient. patient is advised to follow jmm up with GI and otherwise given early appendicitis return precautions. Patient understood and agrees with the plan of care. . 03/28 11:52 Order name: CBC with Diff; Complete Time: 12:39 [facility] 03/28 11:52 Order name: CMP; Complete Time: 12:45 [facility] 03/28 11:52 Order name: Lipase; Complete Time: 12:45 [facility] 03/28 11:52 Order name: CT Abd/Pelvis - IV Contrast Only; Complete Time: 13:16 [facility] 03/28 14:24 Order name: Urine Dipstick-Ancillary; Complete Time: 14:33 [facility] 03/28 11:52 Order name: IV Saline Lock; Complete Time: 12:07 [facility] 03/28 11:52 Order name: Labs collected and sent; Complete Time: 12:07 [facility] 03/28 11:52 Order name: Urine Dipstick-Ancillary (obtain specimen); Complete Time: 14:23 [facility] 03/28 13:55 Order name: Misc. Order: need urine for dispo; Complete Time: 14:17 [facility] Administered Medications: 12:25 Drug: NS 0.9% 1000 ml Route: IV; Rate: 1 bolus; Site: right antecubital; db 13:25 Follow up: Response: No adverse reaction; IV Status: Completed infusion; IV Intake: kb3 1000ml 12:25 Drug: morphine 4 mg Route: IVP; Infused Over: 4 mins; Site: right antecubital; db 13:30 Follow up: Response: No adverse reaction; Pain is decreased kb3 12:38 Drug: Zofran (Ondansetron) 4 mg Route: IVP; Site: right antecubital; db 13:30 Follow up: Response: No adverse reaction; Nausea is decreased kb3 Disposition: 19:00 STAFF ATTESTATION STATEMENT: I was immediately available onsite in the emergency sd2 department for consultation in the care of this patient. I did not see or examine this patient. Romana Ruth MD. Disposition Summary: 03/28/22 14:30 Discharge Ordered Location: Home [facility] Condition: Stable [facility] Diagnosis - Abdominal pain, unspecified [facility] Followup: [facility] - With: Bishnu Birmingham MD - When: 2 - 3 days - Reason: Recheck today's complaints, Continuance of care, Re-evaluation by your physician Discharge Instructions: - Discharge Summary Sheet [facility] - Abdominal Pain, Adult [facility] Forms: - Medication Reconciliation Form [facility] - Thank You Letter [facility] - Antibiotic Education [facility] - Prescription Opioid Use [facility] Prescriptions: - orphenadrine citrate 100 mg Oral Tablet Sustained Release - take 1 tablet by ORAL route 2 times per day As needed; 20 tablet; Refills: 0, [facility] Product Selection Permitted - dicyclomine 20 mg Oral Tablet - take 1 tablet by ORAL route 4 times per day; 20 tablet; Refills: 0, Product [facility] Selection Permitted Signatures: Dispatcher [employer] Pavel Nash PA PA [facility] Marianna Rosario RN Romana Paredes ph D, MD MD [facility] Elza Bolanos RN RN Marie Sanchez RN kb3
[2022-03-28 15:27] VITALS: TEMP 97.2
[2022-03-28 15:37] VITALS: BP 115/75; O2SAT 96
== END 2022-03-28 15:13 | disposition home or self-care (01) ==
LOC: ER 11:32
DX: R10.31 Right lower quadrant pain (principal); Z72.0 Tobacco use; Z88.0 Allergy status to penicillin
CPT/HCPCS: 36415; 74177; 80053; 81003; 83690; 85025; J2405; J7030; Q9967

== ENCOUNTER 2022-05-27 14:06 | Emergency (ER) | payer SELFPAY ==
--- OUTSIDE RECORDS SUMMARY | 2022-05-27 14:10 | XMS REPORT | Continuity of Care Document ---
:1960 Author Organization [facility] t Address [address] [place] [address] Care Team Providers Name Role Phone Arely Mcgarry DO Attending Clinician Doctor Unassigned, [place] Attending Clinician Unavailable Christina Becerra MD Attending Clinician Payers Payer Name Policy Type Policy Number Effective Date Expiration Date Jostin WHITEHEAD O [id number] 2017 00:00:00 Problems Condition Condition Condition Status Onset Resolution Last Treating Co mments Source Name Details Category Date Date Treatment Clinician Date Acute Acute Disease Active Univers cystitis cystitis 09-11 ity of without without 00:00: [place] hematuria hematuria 00 [facility] Elevated Elevated Disease Active Unive rs blood blood 09-11 ity of pressure pressure 00:00: [place] reading reading 00 Medical without without Branch diagnosis diagnosis of of hypertensi hypertensi on on Allergies, Adverse Reactions, Alerts Allergy Allergy Status Severity Reaction(s) Onset Inactive Treating Comm ents Source Name Type Date Date Clinician PENICILL Drug Active Rash Univers INS Class 09-11 ity of 00:00: [place] 00 Medical Branch Penicill Propensi Active Rash Univer s ins ty to 09-11 ity of adverse 00:00: [place] reaction 00 Medical s Branch Social History Social Habit Start Date Stop Date Quantity Comments Source History of Cigarette Smoker Universi ty of tobacco use [facility] Exposure to Unable to assess Univers ity of SARS-CoV-2 [facility] (event) [place] Cigarettes smoked 2020-11-09 2020-11-09 Univers ity of current (pack per 00:00:00 00:00:00 [place] ) - Reported Branch Cigarette 2020-11-09 2020-11-09 University of pack-years 00:00:00 00:00:00 [facility] Tobacco use and 2020-11-09 2020-11-09 Never used Universit y of exposure 00:00:00 00:00:00 [facility] Alcohol intake 2020-11-09 2020-11-09 Current drinker of Un iversity of 00:00:00 00:00:00 alcohol (finding) [facility] Alcohol Comment 2014-09-11 2014-09-11 occasionally Univers ity of 00:00:00 00:00:00 [facility] Sex Ass[birth year] At [birth year] Universit y of 00:00:00 00:00:00 [facility] Smoking Status Start Date Stop Date Source Current every day smoker 2020-11-09 00:00:00 Uni versity of [facility] Medications Ordered Filled Start Stop Current Ordering Indication Dosage Frequency Signature Comments Components Source Medication Medication Date Date Medication? Clinician (SIG) Name Name NaCl 0.9% 1000mL at 999 Uni vers (NS) bolus 11-09 mL/hr, ity of infusion 15:45: 16:46 1,000 mL, Aaron as 1,000 mL 00 :00 IV Medical Piggyback, [place] ONCE, 1 dose, 11/09/20 at 1045, STAT iohexol 2019-04 2020- No 120mL 120 mL, Unive rs (OMNIPAQUE 0-04 10-04 Intravenou it y of 350 16:00: 15:51 s, ONCE, 1 [place] BULK-100 00 :00 dose, [place] [facility] mL) 01/07/20 at Branch injection 1100, 120 mL Routine dicyclomine 2019-04 Yes [id number] 10mg Take 1 Univers (BENTYL) 10 0-04 capsule by it y of mg capsule 00:00: [place] 4 [place] (four) Medical times [place] daily. ondansetron 2019- Yes [id number] 4mg Take 1 Univers 4 mg 0-04 tablet by ity of disintegrat 00:00: mouth [place] ing tablet 00 every 4 Medica l (four) Branch hours as needed for Nausea and Vomiting (N/V). Nitrofurant 2019- Yes [id number] 100mg Take 1 Univers oin&Nit. 0-04 capsule by ity o f [place] 00:[place]: mouth 2 [place] (MACROBID[place] 00 (two) Medical 100 mg times Branch capsule daily. dicyclomine 2019-04 Yes [id number] 10mg Take 1 Univers (BENTYL) 10 0-04 capsule by it y of mg capsule 00:00: mouth 4 [place] (four) Medical times Branch daily. ondansetron 2019-04 Yes [id number] 4mg Take 1 Univers 4 mg 0-04 tablet by ity of disintegrat 00:00: mouth [place] ing tablet 00 every 4 Medica l (four) Branch hours as needed for Nausea and Vomiting (N/V). Nitrofurant 2019-04 Yes [id number] 100mg Take 1 Univers oin&Nit. 0-04 capsule by ity o f [place] 00:[place]: mouth 2 [place] (MACROBID[place] 00 (two) Medical 100 mg times Branch capsule daily. dicyclomine 2019-04 Yes [id number] 10mg Take 1 Univers (BENTYL) 10 0-04 capsule by it y of mg capsule 00:00: mouth 4 [place] (four) Medical times Branch daily. ondansetron 2019-04 Yes [id number] 4mg Take 1 Univers 4 mg 0-04 tablet by ity of disintegrat 00:00: mouth [place] ing tablet 00 every 4 Medica l (four) Branch hours as needed for Nausea and Vomiting (N/V). Nitrofurant 2019-04 Yes [id number] 100mg Take 1 Univers oin&Nit. 0-04 capsule by ity o f [place] 00:[place]: mouth 2 [place] (MACROBID[place] 00 (two) Medical 100 mg times Branch capsule daily. benzonatate 2018-0 Yes 100mg Take 1 Uni vers 100 mg 3-01 capsule by ity of capsule 00:00: mouth 3 [place] 00 (three) Medical times Branch daily as needed for Cough. DO NOT CHEW! benzonatate 2018-0 Yes 100mg Take 1 Uni vers 100 mg 3-01 capsule by ity of capsule 00:00: mouth 3 [place] 00 (three) Medical times Branch daily as needed for Cough. DO NOT CHEW! benzonatate 2018-0 Yes 100mg Take 1 Uni vers 100 mg 3-01 capsule by ity of capsule 00:00: mouth 3 [place] 00 (three) Medical times Branch daily as needed for Cough. DO NOT CHEW! Vital Signs Vital Name Observation Time Observation Value Comments Source Systolic blood 2020-11-09 16:00:00 162 mm[Hg] Univer sity of pressure [facility] Diastolic blood 2020-11-09 16:00:00 97 mm[Hg] Unive rsity of pressure [facility] Heart rate 2020-11-09 16:00:00 77 /min Universi ty [facility] Respiratory rate 2020-11-09 16:00:00 19 /min [facility] Oxygen saturation in 2020-11-09 16:00:00 95 /min University of Arterial blood by [facility] Pulse oximetry Branch BMI 2020-11-09 14:37:00 27.37 kg/m2 Universi ty [facility] Body temperature 2020-11-09 14:37:00 36.89 Fatimah [facility] Body weight 2020-11-09 14:37:00 81.647 kg [facility] Systolic blood 2020-01-07 17:00:00 123 mm[Hg] Univer sity of [facility] Diastolic blood 2020-01-07 17:00:00 89 mm[Hg] Unive rsity of pressure [facility] Heart rate 2020-01-07 17:00:00 77 /min Universi [facility] Oxygen saturation in 2020-01-07 17:00:00 95 /min University of Arterial blood by [facility] Pulse oximetry Branch Respiratory rate 2020-01-07 16:50:00 18 /min [facility] Body temperature 2020-01-07 14:45:00 35.78 Fatimah [facility] Body weight 2020-01-07 14:45:00 81.647 kg Universi [facility] BMI 2020-01-07 14:45:00 27.37 kg/m2 [facility] Procedures Procedure Date / Time Performing Clinician Source Performed XR CHEST 1 VW 2020-11-09 15:22:45 Arely Mcgarry [facility] TROPONIN I 2020-11-09 14:45:00 Arely Mcgarry [facility] HEPATIC FUNCTION PANEL 2020-11-09 14:45:00 Arely Mcgarry [facility] ([id number]) (ALB,T.PRO,BILI Medical Branch T,BU/BC,ALT,AST,ALK PHOS) BASIC METABOLIC PANEL 2020-11-09 14:45:00 Arely Mcgarry [facility] (NA, K, CL, CO2, Medical Branch GLUCOSE, BUN, CREATININE, CA) CBC WITH DIFF 2020-11-09 14:45:00 [facility] COVID-19 (ID NOW RAPID 2020-11-09 14:45:00 [facility] Medical Branch NOTICE OF PRIVACY 2020-11-09 14:27:55 Doctor Unassigned, No [facility] PRACTICES Name Medical Branch CONSENT/REFUSAL FOR 2020-11-09 14:27:40 [facility]igned, [facility]AT[facility] Name Medical Branch CT ABDOMEN PELVIS W WO 2020-01-07 15:56:17 Christina Becerra [facility] CONTRAST [facility] LIPASE 2020-01-07 15:13:00 Christina Becerra [facility] HEPATIC FUNCTION PANEL 2020-01-07 15:13:00 Christina Becerra [facility] ([id number]) (ALB,T.PRO,BILI Medical Branch T,BU/BC,ALT,AST,ALK PHOS) BASIC METABOLIC PANEL 2020-01-07 15:13:00 Christina [facility] (NA, K, CL, CO2, Medical Branch GLUCOSE, BUN, CREATININE, CA) CBC WITH DIFF 2020-01-07 15:13:00 Christina Becerra [facility] PROTHROMBIN TIME / INR 2020-01-07 15:13:00 [facility] ACTIVATED PARTIAL 2020-01-07 15:13:00 Christina Becerra [facility] THRMPLAS MIGUEL [facility] URINALYSIS 2020-01-07 15:13:00 Christina Becerra [facility] NOTICE OF PRIVACY 2020-01-07 14:34:37 Doctor Unassigned, No [facility] PRACTICES Name Medical [place] Encounters Start End Encounter Admission Attending Care Care Encounter Source Date/Time Date/Time Type Type Clinicians Facility Department ID 2020-11-09 2020-11-09 Emergency VAL Mcgarry [id number] Univers 09:31:00 11:46:00 Arely Ellis [id number] ity of [place] [id number] [facility] [id number] [place] [id number] Branch 2020-11-09 2020-11-09 Emergency X [facility] ERT [id number] Univers 09:28:00 09:28:00 ity of [facility] 2020-11-09 2020-11-09 Orders Doctor CANDY [id number] Univers 00:00:00 00:00:00 Only Unassigned, SARA [id number] ity of [place] [facility] [id number] [facility] [id number] [facility] 009 Branch 2020-01-07 2020-01-07 Emergency Becerra, [facility] [id number] Univers 09:46:00 12:32:00 Christina Ellis [id number] i ty [facility] [id number] [facility] [id number] [place] [address] Branch 2020-01-07 2020-01-07 Emergency X [facility] ERT [id number] Univers 09:36:00 09:36:00 [facility] Results Test Description Test Time Test Comments Results Result Sour e Comments XR CHEST 1 VW 1. No acute Universit y of 7 cardiopulmonary [place] Med ical 16:03:51 disease. Branch Indication: cough, sob ? Comparison: None RL: [id number] ORDERING PHYSICIAN: ?ARELY ALVA TECHNIQUE: Single view of the chest. FINDINGS: The lungs are clear. Cardiomediastinal silhouette is withinnormal limits. ?No pneumothorax. Status post intramedullary ian andproximal interlocking screws in the left humerus. Ut, Radiant Results Inft User - 11/09/2020 11:05 [...] 0.001 ng/mL See_Comment [Au tomated message] The 1328303450) system which ge nerated this result tra [...] biotin. Lab Interpretation Normal (test code = 65408-0) [facility] NOW RAPID TESTING)2020-11-09 15:19:50 Test Item Value Reference Range Interpretation Comments SARS-CoV-2 Rapid ID NOW Not Detected Not Detected (test code = 98668-7) RAFAEL (test code = RAFAEL) ID NOW COVID-19 Assay is an isothermal nucleic acid amplification test intended for the qualitative detection of nucleic acid from SARS-CoV-2 viral RNA in nasopharyngeal (WATER METER INSTALLER) specimens. It is used under Emergency Use [...] indicated. Lab Interpretation Normal (test code = 35588-4) [facility] METABOLIC PANEL (NA, K, CL, CO2, GLUCOSE, BUN, CREATININE, CA)2020-11-09 15:18:30 Test Item Value Reference Range Interpretation Comments NA (test code = 139 mmol/L 135-145 8330004123) K (test code = 3.7 mmol/L 3.5-5.0 4369123173) CL (test code = 100 mmol/L 98-108 7302727548) CO2 TOTAL (test code 27 mmol/L 23-31 = 3983386022) AGAP (test code = 2-16 6492702130) BUN (test code = 20 mg/dL 7-23 9368105670) GLUCOSE (test code = 106 mg/dL 70-110 9951855987) CREATININE (test code 0.64 mg/dL 0.50-1.04 = 9137869311) CALCIUM (test code = 9.8 mg/dL 8.6-10.6 5153239353) eGFR (test code = mL/min/1.73m2 4520195300) RAFAEL (test code = RAFAEL) Association of [...] or urine or abnormalities in imaging tests). [facility] ([address]) (ALB,T.PRO,BILI T,BU/BC,ALT,AST,ALK PHOS)2020-11-09 15:18:10 Test Item Value Reference Range Interpretation Comments TOTAL BILI (test code = 8389241187) 0.7 mg/dL 0.1-1.1 BILI UNCON (test code = 2557605235) 0.4 mg/dL 0.1-1.1 BILI CONJ (test code = 2706199415) 0.0 mg/dL 0.0-0.3 T PROTEIN (test code = 7984447815) 8.4 g/dL 6.3-8.2 H ALBUMIN (test code = 9375753134) 4.8 g/dL 3.5-5.0 ALK PHOS (test code = 1687397469) 85 U/L 34-122 ALTv (test code = 1742-6) 31 U/L 5-35 AST(SGOT) (test code = 7304113454) 32 U/L 13-40 Lab Interpretation (test code = Abnormal 26148-4) [facility] Center[facility] WITH [id number] 15:05:09 Test Item Value Reference Range Interpretation Comments WBC (test code = See_Comment [Automated 6362-2) message] The sy stem which generated this result transmitted reference range : 4.30 - 11.10 10*3/?L. The reference range was not used to interpret this result as normal/abnormal . RBC (test code = See_Comment [Automated 191-4) message] The sy stem which generated this [...] RDW-SD (test code = 42.5 fL 39.0-49.9 82949-1) RDW-CV (test code = 12.4 % 12.0-15.5 788-0) PLT (test code = See_Comment [Automated 777-3) message] The sy stem which generated this result transmitted reference range : 166 - 358 10*3/ ?L. The reference r robby was not used to interpret this result as normal/abnormal . MPV (test code = 11.0 fL 9.5-12.9 15604-4) NRBC/100 WBC (test See_Comment [Automat ed code = 6529528834) message] The system which generated this result transmitted reference range : 0.0 - 10.0 /100 WBCs. The refer ence range was not u sed to interpret th is result as normal/abnormal . NRBC x10^3 (test code <0.01 See_Comment [Auto mated = 9508129125) message] The s ystem which generated this result transmitted reference range : 10*3/?L. The reference range was not used to interpret this result as normal/abnormal . GRAN MAT (NEUT) % 59.2 % (test code = 770-8) IMM GRAN % (test code 0.40 % = 8764780377) LYMPH % (test code = 26.6 % 736-9) MONO % (test code = 9.9 % 5905-5) EOS % (test code = 3.1 % 713-8) BASO % (test code = 0.8 % 706-2) GRAN MAT x10^3(ANC) 4.37 10*3/uL 1.88-7.09 (test code = 7163099125) IMM GRAN x10^3 (test 0.03 10*3/uL 0.00-0.06 code = 6034782069) LYMPH x10^3 (test code 1.96 10*3/uL 1.32-3.29 = 731-0) MONO x10^3 (test code 0.73 10*3/uL 0.33-0.92 = 742-7) EOS x10^3 (test code = 0.23 10*3/uL 0.03-0.39 711-2) BASO x10^3 (test code 0.06 10*3/uL 0.01-0.07 = 704-7) Lab Interpretation Abnormal (test code = 51074-5) [facility] P[facility] W WO [id number] 16:52:52 1. Colonic diverticulosis without evidence of [...] underlying fibrouslesion/fibrous dysplasia arefavored. RL: ?2821 AFC: ?[address] WITHOUT AND WITH [...] and/or underlying fibrouslesion/fibrous dysplasia are favored.RL: 2821AFC: 68609Sagcuygborlban signed by Tarik Malloy MD at 01/07/202011:52 AMUnHendrick Medical CenterHepatic Function Panel (ALB, T.PRO, BILI T, BU/BC, ALT, AST, ALK PHOS) 2020-01-07 15:35:00 Test Item Value Reference Range Interpretation Comments TOTAL BILI (test code = 8880964289) 0.3 mg/dL 0.1-1.1 BILI UNCON (test code = 4423193909) 0.4 mg/dL 0.1-1.1 BILI CONJ (test code = 2342600282) 0.0 mg/dL 0-0.3 T PROTEIN (test code = 5749185437) 7.3 g/dL 6.3-8.2 ALBUMIN (test code = 3438769946) 4.0 g/dL 3.5-5 ALK PHOS (test code = 5639524097) 63 U/L 34-122 ALTv (test code = 1742-6) 23 U/L 5-35 AST(SGOT) (test code = 2655054541) 23 U/L 13-40 Lab Interpretation (test code = Normal 14994-7) [facility] CenteraPTT2020-10-04 15:35:00 Test Item Value Reference Range Interpretation Comments APTT Patient (test See_Comment [Automat ed code = 3173-2) message] The system which generated this result transmitted reference range : 23 - 38 Seconds . The reference range was not used to interpr et this result as normal/abnormal . RAFAEL (test code = RAFAEL) The [facility] patient population mean normal value for aPTT is 30 seconds. Lab Interpretation Normal (test code = 74236-4) [facility] Metabolic Panel (NA, K, CL, CO2, GLUCOSE, BUN, CREATININE, CA)2020-01-07 15:34:00 Test Item Value Reference Range Interpretation Comments NA (test code = 138 mmol/L 135-145 5041200511) K (test code = 4.1 mmol/L 3.5-5 4402701295) CL (test code = 100 mmol/L 98-108 2912084454) CO2 TOTAL (test code = 30 mmol/L 23-31 3549102203) AGAP (test code = 2-16 9548908991) BUN (test code = 16 mg/dL 7-23 0506718989) GLUCOSE (test code = 107 mg/dL 70-110 4612658423) CREATININE (test code 0.60 mg/dL 0.5-1.04 = 4711893887) CALCIUM (test code = 9.4 mg/dL 8.6-10.6 1475578517) eGFR Calculation mL/min/1.73m2 (Non-) (test code = 3907337705) eGFR Calculation mL/min/1.73m2 () (test code = 5717229951) RAFAEL (test code = RAFAEL) Association of [...] or urine or abnormalities in imaging tests). [facility] CenterLipase [id number] 15:34:00 Test Item Value Reference Range Interpretation Comments LIPASE (test code = 7402152688) 64 U/L 0-220 Lab Interpretation (test code = Normal 72270-3) [facility] CenterProthrombin Time (PT) / [id number] 15:32:00 Test Item Value Reference Range Interpretation Comments PROTIME PATIENT (test See_Comment [Auto mated message] code = 5964-2) The system [employer] generated this result transmitted ref erence range: 12.0 - 1 4.7 Seconds. The re ference range was not u sed to interpret this result as normal/abnor mal. INR (test code = 6301-6) Nor mal INR <1.1; Warfarin Therap eutic range 2.0 to 3. 0 or 2.5 to 3.5, dep ending upon the indica tions. Lab Interpretation (test Normal code = 22878-8) [facility] CenterUrinalysis2020-10-04 15:30:00 Test Item Value Reference Range Interpretation Comments APPEARANCE (test code = Clear Clear 6510838230) COLOR (test code = Yellow Yellow 5793450790) PH (test code = 4.8-8.0 5109694344) SP GRAVITY (test code = 1.003-1.030 1697143815) GLU U QUAL (test code = Normal Normal 0736153453) BLOOD (test code = 1+ Negative A 2806140414) KETONES (test code = Negative Negative 4078021866) PROTEIN (test code = Negative Negative 2887-8) UROBILIN (test code = Normal Normal 2394928487) BILIRUBIN (test code = Negative Negative 9881313900) NITRITE (test code = Negative Negative 2855347958) LEUK NILAM (test code = 250/uL Negative A 8509981533) RBC/HPF (test code = See_Comment H [Autom ated message] 6119581130) The system [employer] generated this result transmitted ref erence range: 0 - 3 HP F. The reference range was not used to int erpret this result as normal/abnormal . WBC/HPF (test code = See_Comment [Autom ated message] 3678722460) The system [employer] generated this result transmitted ref erence range: 0 - 5 HP F. The reference range was not used to int erpret this result as normal/abnormal . BACTERIA (test code = Few Negative A 6730453827) MUCOUS (test code = Slight Negative LPF A 4326026135) SQ EPITH (test code = HPF 6371166442) Lab Interpretation (test Abnormal code = 23226-1) [facility] with [id number] 15:22:00 Test Item Value Reference Range Interpretation Comments WBC (test code = See_Comment [Automated message] 6690-2) The system [employer] generated this result transmitted ref erence range: 4.30 - 1 1.10 10*3/?L. The re ference range was not u sed to interpret this result as normal/abnor mal. RBC (test code = See_Comment [Automated message] 789-8) The system [employer] generated this result transmitted ref erence range: [...] RDW-SD (test code 41.9 fL 39-49.9 = 82823-1) RDW-CV (test code 12.7 % 12-15.5 = 788-0) PLT (test code = See_Comment [Automated message] 827-3) The system [employer] generated this result transmitted ref erence range: 166 - 35 8 10*3/?L. The re ference range was not u sed to interpret this result as normal/abnor mal. MPV (test code = 11.4 fL 9.5-12.9 46340-5) NRBC/100 WBC (test See_Comment [Automat ed message] code = 3991499866) The syste m which generated this result transmitted ref erence range: 0.0 - 10 .0 /100 WBCs. The refer ence range was not u sed to interpret this result as normal/abnor mal. NRBC x10^3 (test <0.01 See_Comment [Automated message] code = 1473014614) The syste m which generated this result transmitted ref erence range: 10*3/?L. The reference range was not used to interpr et this result as normal/abnormal . GRAN MAT (NEUT) % 66.5 % (test code = 770-8) IMM GRAN % (test 0.40 % code = 2977672864) LYMPH % (test code 22.3 % = 736-9) MONO % (test code 7.6 % = 5905-5) EOS % (test code = 2.4 % 713-8) BASO % (test code 0.8 % = 706-2) GRAN MAT 5.01 10*3/uL 1.88-7.09 x10^3(ANC) (test code = 9152588222) IMM GRAN x10^3 0.03 10*3/uL 0-0.06 (test code = 6417949039) LYMPH x10^3 (test 1.68 10*3/uL 1.32-3.29 code = 731-0) MONO x10^3 (test 0.57 10*3/uL 0.33-0.92 code = 742-7) EOS x10^3 (test 0.18 10*3/uL 0.03-0.39 code = 711-2) BASO x10^3 (test 0.06 10*3/uL 0.01-0.07 code = 704-7) [facility]"
--- NOTE | 2022-05-27 15:16 | RAD REPORT ---
EXAM DESCRIPTION: RAD - Foot Right 3 View - 05/27/2022 2:56 pm CLINICAL HISTORY: Pain COMPARISON: None. FINDINGS: No fracture, dislocation or periosteal reaction. Mild scattered degenerative changes along the interphalangeal joints. Soft tissue irregularity along the plantar sole of the foot, could relate to a small ulcer. IMPRESSION: No acute osseus abnormality. Soft tissue irregularity along the plantar sole of the foot , may relate to a small ulcer.
--- NOTE | 2022-05-27 15:17 | RAD REPORT ---
EXAM DESCRIPTION: RAD - Ankle Right 3 View - 05/27/2022 2:53 pm CLINICAL HISTORY: Pain. Box fell on right foot COMPARISON: None. FINDINGS: Three views of the right ankle. No fracture, dislocation or periosteal reaction. No joint effusion seen. No joint space narrowing. No soft tissue abnormality. IMPRESSION: No acute osseous abnormality of the right ankle
--- NOTE | 2022-05-27 15:51 | ER ---
Nurse's Notes [facility] Name: Lorenza Khan Age: 61 yrs Sex: Female : 1960 Arrival Date: 05/27/2022 Time: 14:10 Bed 10 Private MD: Diagnosis: Contusion of right foot Presentation: 05/27 14:20 Chief complaint: Patient states: i was getting home decor out and something big and jh5 heavy came off the shelf and landed on my foot on Wednesday and now im in so much pain and it's not going away. I tried ice and all that. Coronavirus screen: Vaccine status: Patient reports being unvaccinated. Client denies travel out of the [place] in the last 14 days. Ebola Screen: Patient negative for fever greater than or equal to 101.5 degrees Fahrenheit, and additional compatible Ebola Virus Disease symptoms Patient denies exposure to infectious person. Patient denies travel to an Ebola-affected area in the 21 days before illness onset. Initial Sepsis Screen: Does the patient meet any 2 criteria? No. Patient's initial sepsis screen is negative. Does the patient have a suspected source of infection? No. Patient's initial sepsis screen is negative. Risk Assessment: Do you want to hurt yourself or someone else? Patient reports no desire to harm self or others. 14:20 Method Of Arrival: Ambulatory [facility] 14:20 Acuity: DIANA 3 [facility] 16:45 Onset of symptoms was May 23, 2022. ap3 Triage Assessment: 14:22 General: Appears uncomfortable, Behavior is calm, cooperative, appropriate for age. 5 Pain: Complains of pain in right foot, right ankle. Historical: - Allergies: 14:22 PENICILLINS; 5 - PSHx: 14:22 L arm SX; tubal ligation; [facility] - Immunization history:: Adult Immunizations up to date. - Social history:: Smoking status: Patient reports the use of cigarette tobacco products, smokes one pack cigarettes per day. Screenin:44 [facility] ED Fall Risk Assessment (Adult) History of falling in the last 3 months, ap3 including since admission No falls in past 3 months (0 pts). Abuse screen: Denies threats or abuse. Nutritional screening: No deficits noted. Tuberculosis screening: No symptoms or risk factors identified. Vital Signs: 14:20 BP 154 / 103; Pulse 88; Resp 20; Temp 97.1; Pulse Ox 96% ; Weight 83.91 kg; Height 5 jh5 ft. 7 in. (170.18 cm); Pain 9/10; 14:20 Body Mass Index 28.97 (83.91 kg, 170.18 cm) [facility] ED Course: 14:10 Patient arrived in ED. as 14:22 Triage completed. [facility] 14:22 Arm band placed on right wrist. [facility] 14:25 Pavel Tiwari PA is PHCP. [facility] 14:25 Agustin See MD is Attending Physician. [facility] 15:51 Mikhail Echols DPM is Referral Physician. [facility] 16:10 Josefa Jara, TEDDY is Primary Nurse. ap3 16:45 Patient has correct armband on for positive identification. Bed in low position. Call ap3 light in reach. Side rails up X 1. Adult w/ patient. 16:45 No provider procedures requiring assistance completed. Patient did not have IV access ap3 during this emergency room visit. Administered Medications: 16:44 Drug: Ketorolac 30 mg Route: IM; Site: right deltoid; ap3 16:44 Drug: [place] (HYDROcodone-acetaminophen) 10 mg-325 mg 1 tabs Route: PO; ap3 16:44 Drug: Valium (diazepam) 5 mg Route: PO; ap3 Medication: 16:45 VIS not applicable for this client. ap3 Outcome: 15:51 Discharge ordered by MD. [facility] 16:45 Condition: good ap3 16:45 Discharged to home ambulatory, with family. ap3 16:45 Discharge instructions given to 16:45 Instructed on discharge instructions, follow up and referral plans. medication usage, Demonstrated understanding of instructions, follow-up care, medications, Prescriptions given X 2. 16:45 Patient left the ED. ap3 Signatures: Pavel Tiwari PA PA Megan Ewing as Josefa Jara, TEDDY ESPINAL ap3 Marina Oneal RN RN 5 Corrections: (The following items were deleted from the chart) 14:24 14:20 Pulse 88bpm; Resp 20bpm; Pulse Ox 96%; Temp 97.1F; 83.91 kg; Height 5 ft. 7 in.; jh5 BMI: 28.9; Pain 9/10; jh5
--- NOTE | 2022-05-27 15:51 | EDPHYS ---
Physician Documentation [facility] Name: Lorenza Khan Age: 61 yrs Sex: Female : 1960 Arrival Date: 05/27/2022 Time: 14:10 Bed 10 Private MD: ED Physician Agustin See HPI: 05/27 14:24 This 61 yrs old Female presents to ER via Ambulatory with complaints of Foot Pain. [facility] 14:24 The patient presents with an injury, pain. Onset: The symptoms/episode began/occurred jmm acutely, 3 day(s) ago. Is a 61-year-old female the presents emerged department with complaints of right foot pain which radiates up the calf. Patient states she injured herself 3 days ago when a heavy object the top of her foot.. Historical: - Allergies: 14:22 PENICILLINS; jh5 - PSHx: 14:22 L arm SX; tubal ligation; jh5 - Immunization history:: Adult Immunizations up to date. - Social history:: Smoking status: Patient reports the use of cigarette tobacco products, smokes one pack cigarettes per day. ROS: 14:24 Constitutional: Negative for fever, chills, and weight loss, Cardiovascular: Negative jm for chest pain, palpitations, and edema, Respiratory: Negative for shortness of breath, cough, wheezing, and pleuritic chest pain. 14:24 MS/extremity: Positive for pain. 14:24 All other systems are negative. Exam: 14:24 Constitutional: This is a well developed, well nourished patient who is awake, alert, jmm and in no acute distress. Head/Face: atraumatic. Eyes: EOMI, no conjunctival erythema appreciated ENT: Moist Mucus Membranes Neck: Trachea midline, Supple Chest/axilla: Normal chest wall appearance and motion. Cardiovascular: Regular rate and rhythm. No edema appreciated Respiratory: Normal respirations, no respiratory distress appreciated Abdomen/GI: Non distended Back: Normal ROM 14:24 Musculoskeletal/extremity: Swelling noted to the dorsum of the right foot, full dorsalis pedis pulse appreciated, compartments are soft, neurovascular intact. 14:24 Skin: 14:24 Neuro: Orientation: is normal, Mentation: is normal, Memory: is normal. 14:24 Psych: Behavior/mood is pleasant, cooperative. Vital Signs: 14:20 BP 154 / 103; Pulse 88; Resp 20; Temp 97.1; Pulse Ox 96% ; Weight 83.91 kg; Height 5 [facility] ft. 7 in. (170.18 cm); Pain 9/10; 14:20 Body Mass Index 28.97 (83.91 kg, 170.18 cm) [facility] MDM: 14:26 Patient medically screened. [facility] 15:50 Data reviewed: vital signs, nurses notes. [facility] 05/27 14:24 Order name: XRAY Foot RIGHT 3 View [facility] 05/27 14:24 Order name: XRAY Ankle RIGHT 3 view [facility] 05/27 15:17 Order name: RAD; Complete Time: 15:22 [facility] 05/27 15:18 Order name: RAD; Complete Time: 15: [facility] 05/27 15:22 Order name: Ortho shoe; Complete Time: 16:44 [facility] Administered Medications: 16:44 Drug: Ketorolac 30 mg Route: IM; Site: right deltoid; ap3 16:44 Drug: [place] (HYDROcodone-acetaminophen) 10 mg-325 mg 1 tabs Route: PO; ap3 16:44 Drug: Valium (diazepam) 5 mg Route: PO; ap3 Disposition Summary: 05/27/22 15:51 Discharge Ordered Location: Home [facility] Condition: Stable [facility] Diagnosis - Contusion of right foot [facility] Followup: [facility] - With: Mikhail Echols DPM - When: 2 - 3 days - Reason: Recheck today's complaints, Continuance of care, Re-evaluation by your physician Discharge Instructions: - Discharge Summary Sheet [facility] - Foot Contusion [facility] Forms: - Medication Reconciliation Form [facility] - Thank You Letter [facility] - Antibiotic Education [facility] - Prescription Opioid Use [facility] Prescriptions: - Diclofenac Sodium 75 mg Oral Tablet Sustained Release - take 1 tablet by ORAL route 2 times per day; 30 tablet; Refills: 0, Product [facility] Selection Permitted - orphenadrine citrate 100 mg Oral Tablet Sustained Release - take 1 tablet by ORAL route 2 times per day As needed; 20 tablet; Refills: 0, [facility] Product Selection Permitted Signatures: Dispatcher [employer] Agustin Hernandez MD MD cha Mickail, Joel, PA PA Josefa Bateman RN RN ap3 Jm, Marina, RN RN jh5
[2022-05-27] MEDS ORDERED: HYDROCODONE/APAP 10/325 TAB ONE (16:18)
[2022-05-27] MEDS ORDERED: DIAZEPAM 5 MG TABLET ONE (16:18)
[2022-05-27] MEDS ORDERED: KETOROLAC 30 MG/ML INJ ONE (16:18)
[2022-05-27 17:57] VITALS: BP 154/103; TEMP 97.1; O2SAT 96
== END 2022-05-27 16:45 | disposition home or self-care (01) ==
LOC: ER 14:06
DX: S90.31XA Contusion of right foot, initial encounter (principal); F17.210 Nicotine dependence, cigarettes, uncomplicated
CPT/HCPCS: 96372; 99283